=== PATIENT | female | born 1945 | race Caucasian/White ===

== ENCOUNTER → 2018-03-12 | Day surgery (SDC) | payer MEDICARE, OTHER ==
[~2018-03-12] MED LIST: AMLO-265 PO; CARV25TA2 PO; CRESTOR10 MG PO; FAMO40TA4 PO; IV RINGERS,LACTATED 1000ML 1,000 ML IV SCH; LIDOCAINE 1% PF 2 ML VIAL. ID PRN; LIDOCAINE 1% PF 2 ML VIAL. ONE; MIDAZOLAM HCL/PF 2 MG/2 ML VIAL. IV PRN; OMEP40CA5 PO; POTA20TA82 PO; PROPOFOL 20 ML IV ONE; fentaNYL PF VIAL 100 MCG/2 ML VIAL IV PRN
[2018-03-12 07:40] VITALS: BP 120/70
--- NOTE | 2018-03-13 16:09 | PATHOLOGY ---
[facility] Accession Number: [id number] . 01 Material submitted: . DISTAL ESOPHAGUS . 01 Clinical history: . Heartburn, rule out Biswas's . 02 Diagnosis: Esophagus, distal, biopsy: - Fragments of squamous epithelium with no pathologic diagnosis. - No columnar epithelium identified. (SKM:[facility] 03/13/2018) QTP/03/13/2018 . 02 Electronically signed: . David Garcia MD, Pathologist NPI- [id number] . 01 Gross description: . Received in formalin labeled "Brown, Milagro, distal esophagus," are 4 segments of portillo soft tissue measuring 1.1 x 0.5 x 0.2 cm in aggregate dimensions and ranging from 0.2 to 0.5 cm in maximum dimension. The specimen is submitted entirely in cassette A1. (TSD; 03/12/2018) TOB/TOB . 02 Pathologist provided ICD-10: R12, R05 . 02 CPT . 098639 Specimen Comment: A courtesy copy of this report has been sent to Specimen Comment: [phone], . Specimen Comment: Report sent to / DR ENGEL Specimen Comment: A duplicate report has been generated due to demographic updates. Performed at: 01 [facility] [address], [place], [place] [id number] MD Quinn Celeste MD Phone: [phone] Performed at: 02 [facility] [address] [place], [place] [id number] MD Frank Ramirez MD Phone: [phone]
== END | disposition home or self-care (01) ==
LOC: SURG 06:09
PROVIDERS: ATTEND Internal Medicine Gastroenterology
DX: K21.0 Gastro-esophageal reflux disease with esophagitis (principal); K44.9 Diaphragmatic hernia without obstruction or gangrene; I10 Essential (primary) hypertension; E78.00 Pure hypercholesterolemia, unspecified; Z79.899 Other long term (current) drug therapy; E66.9 Obesity, unspecified; Z68.32 Body mass index [BMI] 32.0-32.9, adult; Z90.49 Acquired absence of other specified parts of digestive tract; Z98.890 Other specified postprocedural states; Z72.89 Other problems related to lifestyle; M19.90 Unspecified osteoarthritis, unspecified site; E88.81 Metabolic syndrome and other insulin resistance; Z82.49 Family history of ischemic heart disease and other diseases of the circulatory system; Z80.0 Family history of malignant neoplasm of digestive organs
CPT/HCPCS: 43239; 88305; J2704

== ENCOUNTER → 2018-06-04 | Day surgery (SDC) | payer MEDICARE, OTHER ==
[~2018-06-04] MED LIST changes: +ERGO500027 PO; +FAMOTIDINE 20 MG/2 ML VIAL ONE; +GLYCOPYRROLATE 1 MG/5 ML VIAL. ONE; +HYDROmorphone 2 MG/ML VIAL IV PRN; -LIDOCAINE 1% PF 2 ML VIAL. ID PRN; -LIDOCAINE 1% PF 2 ML VIAL. ONE; -MIDAZOLAM HCL/PF 2 MG/2 ML VIAL. IV PRN; +MORPHINE SULFATE 2 MG/ML VIAL. IV PRN; +MULT-245 PO; +ONDANSETRON PF 4 MG/2 ML VIAL. IV PRN; +PROCHLORPERAZINE 10 MG/2 ML VIAL. IV PRN; -PROPOFOL 20 ML IV ONE; +PROPOFOL 40 ML IV ONE
[2018-06-04 07:58] VITALS: BP 137/69
--- NOTE | 2018-06-04 21:15 | CONS ---
DATE OF CONSULTATION: 06/04/2018 REASON FOR CONSULTATION: Rectal bleeding. REFERRING PHYSICIAN: Dr. Hubert Beaulieu/Dr. Myrna Calabrese. HISTORY OF PRESENT ILLNESS: This 73-year-old female with past medical history significant for hypertension, gastroesophageal reflux disease and hyperlipidemia is seen for rectal bleeding, has been intermittent painless in nature, associated with some leakage. FAMILY HISTORY: Positive for colon cancer with continued issues, she requests additional evaluation. PAST MEDICAL HISTORY: Hypertension, hyperlipidemia, gastroesophageal reflux disease. ALLERGIES: None. MEDICATIONS: Include amlodipine, atorvastatin, carvedilol, famotidine, multivitamin, omeprazole, potassium, and rosuvastatin. SOCIAL HISTORY: Social drinker, nonsmoker. FAMILY HISTORY: Significant for CVAs, colon cancer with father and grandfather. REVIEW OF SYSTEMS: Per records. PHYSICAL EXAMINATION: GENERAL: A well-nourished, well-developed female. VITAL SIGNS: Temperature is 99, pulse 103, respirations 16. HEENT: Normocephalic and atraumatic. Pupils and extraocular muscles are not tested. Sclerae anicteric. NECK: Supple. LUNGS: Clear. CARDIOVASCULAR: Reveals an S1, S2 without S3, S4 or appreciable murmur. ABDOMEN: Reveals soft abdomen, normal bowel sounds without appreciable hepatosplenomegaly. EXTREMITIES: Reveals no cyanosis, clubbing, edema. IMPRESSION: 1. Rectal bleeding. 2. Family history of colon cancer, etiology undetermined. 3. Hemorrhoids. 4. Inflammatory bowel disease. 5. Colonic polyps. 6. Malignancy. 7. Ischemic colitis in the differential. RECOMMENDATIONS: Recommend colonoscopy to further assess. Risks and benefits were discussed. The patient is willing to proceed at this time. RAJ WATKINS MD DR: JOSE F/subhash JOB#: [id number] / [id number]
== END | disposition home or self-care (01) ==
LOC: ENDOS 06:04
PROVIDERS: ATTEND Internal Medicine Gastroenterology
DX: K64.0 First degree hemorrhoids (principal); K92.1 Melena; I10 Essential (primary) hypertension; K21.9 Gastro-esophageal reflux disease without esophagitis; E78.5 Hyperlipidemia, unspecified; Z79.899 Other long term (current) drug therapy; Z72.89 Other problems related to lifestyle; Z80.0 Family history of malignant neoplasm of digestive organs; Z82.3 Family history of stroke; Z86.010 Personal history of colon polyps
CPT/HCPCS: 45378; J2704; J3490